=== PATIENT | male | born 1945 | race Caucasian/White ===

== ENCOUNTER → 2018-06-06 | Outpatient (CLI) | payer MEDICARE, OTHER ==
[~2018-06-06] MED LIST: CALAN SR120 MG PO; DEPAKOTE 250MG250 MG PO; DIAZEPAM PO; INDERAL LA160 MG PO; LORTAB 5/500 501 TAB PO; ZOMIG2.5 MG PO
== END ==
LOC: COL.RAD 14:39
DX: S92.112A Displaced fracture of neck of left talus, initial encounter for closed fracture (principal); S82.52XA Displaced fracture of medial malleolus of left tibia, initial encounter for closed fracture; S93.492A Sprain of other ligament of left ankle, initial encounter

== ENCOUNTER 2019-03-05 07:05 | Day surgery (SDC) | payer MEDICARE, OTHER ==
[~2019-03-05] VITALS: Ht 172.7 cm; Wt 82.1 kg
[2019-03-05 07:54] LABS: HEMATOCRIT 49.4 % (42.0-52.0); HEMOGLOBIN 16.6 g/dl (13.5-18.0); MEAN CELL VOLUME 95 fl (80.0-100.0); MEAN CORPUSCULAR HEMOGLOBIN 32 pg (27.0-31.0); MEAN CORPUSCULAR HGB CONC 34 g/dl (33.0-37.0); MEAN PLATELET VOLUME 11.4 fl (7.4-10.4); PLATELET COUNT 219 K/mm3 (130-400); RED BLOOD COUNT 5.23 M/mm3 (4.20-5.60); REDCELL DISTRIBUTION WIDTH-CV 12.4 % (11.5-14.5)
[2019-03-05] MEDS ORDERED: AMBIEN 10MG10 MG PO (08:00)
[2019-03-05] MEDS ORDERED: ZEBETA10 MG PO (08:00)
[2019-03-05] MEDS ORDERED: IMITREX100 MG PO (08:01)
[2019-03-05 08:05] LABS: INR 1.2 (0.8-3.0); PROTHROMBIN TIME 14.5 SECONDS (9.7-12.8)
[2019-03-05] MEDS ORDERED: BUSPAR10 MG PO (08:07)
[2019-03-05] MEDS ORDERED: PRISTIQ 50 MG T50 MG PO (08:07)
[2019-03-05] MEDS ORDERED: FLEXERIL 1010 MG/TAB PO (08:08)
[2019-03-05] MEDS ORDERED: FLOMAX 0.40.4 MG/CAP PO (08:08)
[2019-03-05] MEDS ORDERED: NORCO 325 MG-51 TAB PO (08:09)
[2019-03-05] MEDS ORDERED: GARLIC100 MG PO (08:09)
[2019-03-05] MEDS ORDERED: VITAMIN C500 MG PO (08:10)
[2019-03-05] MEDS ORDERED: ASPIRIN E.C. 8181 MG PO (08:10)
[2019-03-05] MEDS ORDERED: VALIUM 5MG T5 MG/TAB PO (08:11)
[2019-03-05] MEDS ORDERED: OMEGA-3 1000 MG1 CAP PO (08:11)
[2019-03-05] MEDS ORDERED: ELIQUIS 2.5 PO (08:12)
[2019-03-05 08:31] LABS: CALCIUM 8.9 mg/dL (8.4-10.2); CREATININE, serum 0.86 (0.66-1.25); POTASSIUM 3.9 mmol/L (3.4-5.0)
[2019-03-05 08:42] VITALS: BP 139/89; PULSE 64; TEMP 98.1
[2019-03-05 09:02] LABS: THYROID STIMULATING HORMONE 2.5 uIU/mL (0.465-4.680)
[2019-03-05] MEDS ORDERED: ELIQUIS 5MG PO (09:46)
[2019-03-05] MEDS ORDERED: PACERONE200 MG PO (09:47)
[2019-03-05] MEDS ORDERED: ZEBETA 5MG5 MG PO (09:48)
[2019-03-05 09:55] VITALS: BP 115/78; PULSE 65
[2019-03-05 10:10] VITALS: BP 118/77; PULSE 62
[2019-03-05 10:25] VITALS: BP 121/82; PULSE 62
--- NOTE | 2019-03-05 10:59 | NUR ---
Discharge instructions given to pt.Pt verbalizes understanding.INT removed,catheter tip intact.Pt escorted out via wheelchair by this nurse.
[2019-03-05 11:56] VITALS: BP 113/78; PULSE 65
== END 2019-03-05 11:57 | disposition home or self-care (01) ==
LOC: COL.CAR 07:05
PROVIDERS: Internal Medicine Cardiovascular Disease
DX: I48.0 Paroxysmal atrial fibrillation (principal); I10 Essential (primary) hypertension; I08.3 Combined rheumatic disorders of mitral, aortic and tricuspid valves; Z88.6 Allergy status to analgesic agent; Z79.899 Other long term (current) drug therapy; Z79.82 Long term (current) use of aspirin; Z87.891 Personal history of nicotine dependence
CPT/HCPCS: J2704; J7120

== ENCOUNTER 2019-03-26 04:00 | Inpatient (IN) | payer MEDICARE, OTHER ==
[~2019-03-26] VITALS: Ht 157.5 cm; Wt 84.9 kg
[2019-03-26] VITALS (447 sets, daily range): BP systolic 109–118; BP diastolic 55–67; PULSE 34–35; TEMP 97.6–98.9; O2SAT 85–99
[~2019-03-26 04:00] MED LIST changes: +AMBIEN 10MG10 MG PO; +ASPIRIN E.C. 8181 MG PO; +BUSPAR10 MG PO; +ELIQUIS 2.5 PO; +ELIQUIS 5MG PO; +FLEXERIL 1010 MG/TAB PO; +FLOMAX 0.40.4 MG/CAP PO; +GARLIC100 MG PO; +IMITREX100 MG PO; +NORCO 325 MG-51 TAB PO; +OMEGA-3 1000 MG1 CAP PO; +PACERONE200 MG PO; +PRISTIQ 50 MG T50 MG PO; +VALIUM 5MG T5 MG/TAB PO; +VITAMIN C500 MG PO; +ZEBETA 5MG5 MG PO; +ZEBETA10 MG PO
--- NOTE | 2019-03-26 05:37 | NUR ---
PT arrived on unit at 0537 via EMS. PT transferred himself from stretcher to bed, appeared to struggle some and was slightly SOA after doing so. Vitals taken, HR noted to be 35, consistent with admit dx and EMS report--provider notified. Will continue to monitor.
--- NOTE | 2019-03-26 06:35 | NUR ---
PT , Ekaterina, in room to see PT and updated on POC, reviewed code status since PT was unsure and wanted to wait to discuss with . stated that she wanted him to be full code, discussed the extent of what that means (compressions, intubation, medication), verbalized understanding.
--- NOTE | 2019-03-26 07:20 | NUR ---
Report given to JAGJIT Bernstein.
--- NOTE | 2019-03-26 08:05 | NUR ---
NOTIFIED OF CONSULT. PT SEE'S AN OUTPT. DR. IEVY EVALUTATED BEDSIDE.
--- NOTE | 2019-03-26 08:11 | NUR ---
PT ADMITTED FROM [facility]. PT IS BRADYCARDIA. PT IS AXOX3. PT COMPLAINING OF HEADACHE AND SOME NAUSEA. EKG ORDERED. PORTIA MCALLISTER REVIEWED AND IS NOW BEDSIDE. ADMISSION DONE WITH PT AND . WILL CONSULT CARDIOLOGY.
--- NOTE | 2019-03-26 08:42 | NUR ---
[facility] CALLED AND ASKED TO UPLOAD PT'S CHEST XRAY TO [facility].
[2019-03-26 08:59] LABS: COLLECTION METHOD CLEAN CATCH
[2019-03-26 09:03] LABS: BASO % 0.3 % (0.0-2.0); EOS % 0.1 % (0-4.0); GRAN # 8.9 (1.4-6.5); HEMATOCRIT 42.1 % (42.0-52.0); HEMOGLOBIN 14.2 g/dl (13.5-18.0); LYMPH # 1.1 (1.2-3.4); LYMPH % 10.5 % (20.0-51.0); MEAN CELL VOLUME 96 fl (80.0-100.0); MEAN CORPUSCULAR HEMOGLOBIN 32 pg (27.0-31.0); MEAN CORPUSCULAR HGB CONC 34 g/dl (33.0-37.0); MEAN PLATELET VOLUME 10.1 fl (7.4-10.4); MONO # 0.7 (0.1-0.6); MONO % 6.5 % (1.7-9.3); PLATELET COUNT 289 K/mm3 (130-400); RED BLOOD COUNT 4.39 M/mm3 (4.20-5.60); REDCELL DISTRIBUTION WIDTH-CV 12.8 % (11.5-14.5)
[2019-03-26 09:11] LABS: HYALINE CAST >12 /lpf; MUCOUS Present /lpf; PH 5 (5-8); SQUAMOUS EPITHELIAL 0-2 /hpf; URINE APPEARANCE Clear; URINE BACTERIA Rare /hpf; URINE BILIRUBIN Negative (NEGATIVE); URINE BLOOD Negative (NEGATIVE); URINE COLOR Yellow; URINE GLUCOSE Negative (NEGATIVE); URINE KETONE Negative (NEGATIVE); URINE LEUKOCYTE ESTERASE Negative (NEGATIVE); URINE NITRATE Negative (NEGATIVE); URINE PROTEIN(semi-quant) Negative (NEGATIVE); URINE RBC None Seen /hpf; URINE UROBILINOGEN Negative (NEGATIVE)
[2019-03-26 09:16] LABS: ALBUMIN 3.9 gm/dL (3.5-5.0); BILIRUBIN,TOTAL 0.7 mg/dL (0.0-1.0); CALCIUM 8.5 mg/dL (8.4-10.2); CREATININE, serum 1.43 (0.66-1.25); MAGNESIUM 1.9 mg/dL (1.6-2.3); POTASSIUM 4.8 mmol/L (3.4-5.0); TOTAL PROTEIN 6.6 gm/dL (6.4-8.2)
[2019-03-26 09:45] LABS: TSH w REFLEX 12.8 uIU/mL (0.465-4.680)
--- NOTE | 2019-03-26 10:56 | NUR ---
Initial visit; Patient thanked [employer] Cover Treater for looking in on him and offering God's blessings.
--- NOTE | 2019-03-26 11:19 | NUR ---
hops farmworker attended clinical rounds and met with patient to discuss discharge planning. Patient states he lives with his near [place], [place] and plans to return there upon discharge. Patient states he and spouse are independent with their activities of daily living. Patient states his primary care provider is Dr Cam and that he obtains his medications in [place], without difficulty. Worker requested physical therapy for patient. Case management will continue to follow and assist as needed with discharge planning needs.
[2019-03-26 14:42] LABS: CALCIUM 8.3 mg/dL (8.4-10.2); CREATININE, serum 1.75 (0.66-1.25); POTASSIUM 5.7 mmol/L (3.4-5.0)
--- NOTE | 2019-03-26 14:53 | NUR ---
Eunice MCALLISTER notified of K level 5.7 and increase in Cr. Will redraw labs.
[2019-03-26 16:15] LABS: CALCIUM 8.4 mg/dL (8.4-10.2); CREATININE, serum 1.74 (0.66-1.25); POTASSIUM 5.2 mmol/L (3.4-5.0)
--- NOTE | 2019-03-26 19:30 | NUR ---
Bedside report received from JAGJIT Bernstein
[2019-03-27] VITALS (599 sets, daily range): BP systolic 112–127; BP diastolic 55–73; PULSE 34–70; TEMP 97.9–98.8; O2SAT 57–100
[2019-03-27 05:15] LABS: BASO % 0.4 % (0.0-2.0); EOS % 0.3 % (0-4.0); GRAN # 7.5 (1.4-6.5); GRAN % 70.6 % (42.2-75.2); HEMATOCRIT 40.4 % (42.0-52.0); HEMOGLOBIN 13.3 g/dl (13.5-18.0); LYMPH # 1.4 (1.2-3.4); LYMPH % 13.6 % (20.0-51.0); MEAN CELL VOLUME 98 fl (80.0-100.0); MEAN CORPUSCULAR HEMOGLOBIN 32 pg (27.0-31.0); MEAN CORPUSCULAR HGB CONC 33 g/dl (33.0-37.0); MEAN PLATELET VOLUME 10.7 fl (7.4-10.4); MONO # 1.6 (0.1-0.6); MONO % 14.6 % (1.7-9.3); PLATELET COUNT 260 K/mm3 (130-400); RED BLOOD COUNT 4.14 M/mm3 (4.20-5.60); REDCELL DISTRIBUTION WIDTH-CV 12.8 % (11.5-14.5)
[2019-03-27 05:25] LABS: CALCIUM 8.2 mg/dL (8.4-10.2); CREATININE, serum 1.76 (0.66-1.25); POTASSIUM 4.5 mmol/L (3.4-5.0)
--- NOTE | 2019-03-27 07:20 | NUR ---
Bedside report given to JAGJIT Casillas
--- NOTE | 2019-03-27 07:40 | NUR ---
Report received from Mireille DANIELSON and care resumed.
--- NOTE | 2019-03-27 12:40 | NUR ---
SEE MERGE DOCUMENTATION FOR MEDICATION ADMINISTRATION TIMES AND INTRA/POST PROCEDURE SEDATION ASSESSMENTS.
--- NOTE | 2019-03-27 19:20 | NUR ---
Bedside report received from JAGJIT Casillas. Patient resting in bed. No current needs.
--- NOTE | 2019-03-27 19:29 | NUR ---
Report given to Mireille DANIELSON and care transfered.
--- NOTE | 2019-03-27 20:00 | NUR ---
Patient resting in bed at this time. complaints of some aching pain to his left chest at the pacemaker site. Requesting tylenol, to be provided. Assessment complete with no changes from previous exam. Pacemaker dressing is clean, dry, and intact. surrounding tissue is soft, no hematoma or bruising noted. Vitals are stable. Patient requests some water, provided. No further needs at this time. Will continue to monitor. Call light within reach.
[2019-03-28] VITALS (331 sets, daily range): BP systolic 100–119; BP diastolic 60–79; PULSE 59–84; TEMP 97.6–97.7; O2SAT 84–98
--- NOTE | 2019-03-28 | NUR ---
Patient asleep, resting on CPAP. No complaints of pain and no further needs at this time.
--- NOTE | 2019-03-28 05:00 | NUR ---
Patient requests some more tylenol as his chest is getting sore again, provided. No other needs, vitals have been stable. Will continue to monitor. Call light within reach.
--- NOTE | 2019-03-28 07:07 | NUR ---
Bedside report given to JAGJIT Casillas
--- NOTE | 2019-03-28 07:13 | NUR ---
Report received from Mireille DANIELSON and care resumed.
[2019-03-28 07:47] LABS: BASO % 0.5 % (0.0-2.0); EOS # 0.1 (0.0-0.7); EOS % 0.6 % (0-4.0); GRAN # 5.9 (1.4-6.5); GRAN % 73.5 % (42.2-75.2); HEMATOCRIT 40.9 % (42.0-52.0); HEMOGLOBIN 13.5 g/dl (13.5-18.0); LYMPH # 0.7 (1.2-3.4); LYMPH % 9.2 % (20.0-51.0); MEAN CELL VOLUME 97 fl (80.0-100.0); MEAN CORPUSCULAR HEMOGLOBIN 32 pg (27.0-31.0); MEAN CORPUSCULAR HGB CONC 33 g/dl (33.0-37.0); MEAN PLATELET VOLUME 11.2 fl (7.4-10.4); MONO # 1.3 (0.1-0.6); MONO % 15.9 % (1.7-9.3); PLATELET COUNT 220 K/mm3 (130-400); RED BLOOD COUNT 4.21 M/mm3 (4.20-5.60); REDCELL DISTRIBUTION WIDTH-CV 12.7 % (11.5-14.5)
[2019-03-28 07:52] LABS: CALCIUM 8.9 mg/dL (8.4-10.2); CREATININE, serum 1.65 (0.66-1.25); POTASSIUM 4.3 mmol/L (3.4-5.0)
--- NOTE | 2019-03-28 09:15 | NUR ---
Dr Godoy in to see pt at this time.
--- NOTE | 2019-03-28 10:00 | NUR ---
Dr Rosen in to see pt at this time.
[2019-03-28] MEDS ORDERED: CEPHALEXIN500 M1 PO (10:09)
[2019-03-28] MEDS ORDERED: PACERONE200 MG PO (10:10)
[2019-03-28] MEDS ORDERED: LASIX 20MG TABL20 MG PO (10:10)
[2019-03-28] MEDS ORDERED: ELIQUIS 5MG PO ×2 (10:11→10:24)
--- NOTE | 2019-03-28 11:19 | NUR ---
MANAGER [employer] student attended clinical rounds. The patient is to discharge home today, 03/28. There are no additional needs at this time.
--- NOTE | 2019-03-28 11:59 | NUR ---
Pt given discharge instructions after getting dressed. was present and all questions answered. Pt taken out by wheelchair to private care for discharge at this time.
== END 2019-03-28 11:55 | disposition home or self-care (01) | DRG 242 ==
LOC: ICU 04:00
PROVIDERS: Physician Assistant; ADMIT Internal Medicine
PROC: 0JH606Z Insertion of Pacemaker, Dual Chamber into Chest Subcutaneous Tissue and Fascia, Open Approach (ICD-10-PCS; principal; 2019-03-27)
PROC: 02H63JZ Insertion of Pacemaker Lead into Right Atrium, Percutaneous Approach (ICD-10-PCS; 2019-03-27)
PROC: 02HK3JZ Insertion of Pacemaker Lead into Right Ventricle, Percutaneous Approach (ICD-10-PCS; 2019-03-27)
DX: I49.5 Sick sinus syndrome (principal); J96.01 Acute respiratory failure with hypoxia; I50.22 Chronic systolic (congestive) heart failure; N17.9 Acute kidney failure, unspecified; E87.2 Acidosis; E87.1 Hypo-osmolality and hyponatremia; F32.9 Major depressive disorder, single episode, unspecified; I48.0 Paroxysmal atrial fibrillation; I11.0 Hypertensive heart disease with heart failure; J44.9 Chronic obstructive pulmonary disease, unspecified; N40.0 Benign prostatic hyperplasia without lower urinary tract symptoms; G47.00 Insomnia, unspecified; E87.8 Other disorders of electrolyte and fluid balance, not elsewhere classified; G43.909 Migraine, unspecified, not intractable, without status migrainosus; F17.210 Nicotine dependence, cigarettes, uncomplicated; Z79.891 Long term (current) use of opiate analgesic; Z86.73 Personal history of transient ischemic attack (TIA), and cerebral infarction without residual deficits; Z98.1 Arthrodesis status
CPT/HCPCS: 99223-AI; 99233-AI; 99239; C1785; C1894; C1898; J0690; J1200; J1940; J2405; J7030; J7040; Q9967

== ENCOUNTER → 2019-09-22 | Outpatient (CLI) | payer MEDICARE, OTHER ==
[~2019-09-22] MED LIST changes: +CEPHALEXIN500 M1 PO; +LASIX 20MG TABL20 MG PO
== END ==
LOC: ZCOL.LAB 14:28
DX: K92.1 Melena (principal)

== ENCOUNTER → 2022-06-16 | Outpatient (CLI) | payer MEDICARE, OTHER ==
[2022-06-16 12:23] LABS: BILIRUBIN,TOTAL 1.3 mg/dL (0.2-1.2); CALCIUM 9.5 mg/dL (8.4-10.2); CREATININE, serum 0.8 mg/dL (0.72-1.25); POTASSIUM 4.3 mmol/L (3.5-4.5); TOTAL PROTEIN 7.2 gm/dL (6.2-8.1)
[2022-06-16 12:44] LABS: TSH w REFLEX 1.769 uIU/mL (0.350-4.940)
== END ==
LOC: COL.LAB 11:41
PROVIDERS: Internal Medicine Cardiovascular Disease
DX: I48.0 Paroxysmal atrial fibrillation (principal); I50.32 Chronic diastolic (congestive) heart failure

== ENCOUNTER → 2023-02-08 | Outpatient (CLI) | payer MEDICARE, OTHER ==
[~2023-02-08] MED LIST changes: +AMBIEN 5MG TABLE5 MG PO; +ASPIRIN 81M81 MG/TA2 PO; +COZAAR 50MG50 MG/TAB PO; +CRESTOR20 MG PO; +FENTANYL 12MCG TD; +LASIX 40MG TABL40 MG PO; +LEVSIN0.125 M1 PO; +NORVASC 5MG5 MG/TAB PO; +NURTEC ODT75 MG PO; +PROSCAR 5MG5 MG PO; +PYRIDIUM 100MG100 MG PO
== END ==
LOC: COL.RAD 09:50
DX: R18.8 Other ascites (principal); K86.9 Disease of pancreas, unspecified; I72.8 Aneurysm of other specified arteries
CPT/HCPCS: Q9967

== ENCOUNTER → 2023-02-10 | Outpatient (CLI) | payer MEDICARE, OTHER ==
[~2023-02-10] VITALS: Ht 172.7 cm; Wt 74.0 kg
[2023-02-10 10:36] VITALS: BP 100/74; PULSE 92; TEMP 97.6
[2023-02-10 12:21] VITALS: BP 116/76; PULSE 90
== END ==
LOC: COL.RAD 09:51
DX: R18.8 Other ascites (principal); K86.9 Disease of pancreas, unspecified
CPT/HCPCS: 19804